=== PATIENT | male | born 1995 | race Caucasian/White ===

== ENCOUNTER 2025-05-19 16:12 | Outpatient (CLI) | payer BC ==
--- NOTE | 2025-05-19 17:23 | RADIOLOGY REPORT ---
EXAM: DI FOOT, COMPLETE (3VW MIN) INDICATION: BUNION; RIGHT FOOT PAIN TECHNIQUE: 3 views of the left foot COMPARISON: None FINDINGS/IMPRESSION: No radiographic evidence of an acute osseous abnormality. There is no acute fracture, osseous malalig nment, or aggressive focal osseous lesion. Mild hallux valgus alignment with minimal overlying soft t issue thickening
--- NOTE | 2025-05-19 17:23 | RADIOLOGY REPORT ---
EXAM: DI ANKLE, COMPLETE(3VW MIN) INDICATION: BUNION; RIGHT FOOT PAIN TECHNIQUE: 3 views of the right foot and ankle COMPARISON: None FINDINGS/IMPRESSION: No radiographic evidence of an acute osseous abnormality. There is no acute fracture, osseous malalig nment, or aggressive focal osseous lesion. No osseous lucency of the talar dome. No tibiotalar joint effusion anatomic alignment. No significant joint space loss. Trace possible soft tissue thickening compatible with possible bunion of the 1st metatarsophalangeal joint
--- NOTE | 2025-05-23 09:05 | RADIOLOGY REPORT ---
EXAM: DI FOOT, COMPLETE (3VW MIN) CLINICAL INDICATION: BUNION; RIGHT FOOT PAIN TECHNIQUE: DI FOOT, COMPLETE (3VW MIN) Comparison: DI ANKLE, COMPLETE(3VW MIN) on DOS: 05/19/25, DI FOOT, COMPLETE (3VW MIN) on DOS: 05/19/25 FINDINGS/IMPRESSION: There is no evidence of acute fracture or dislocation. The visualized joint space is well maintained. The alignment is anatomical. There is no radiopaque foreign body.
== END 2025-05-19 23:59 | disposition home or self-care (01) ==
LOC: RAD 16:12
PROVIDERS: ATTEND Nurse Practitioner Family
DX: M20.12 Hallux valgus (acquired), left foot (principal); M79.671 Pain in right foot; M21.619 Bunion of unspecified foot
CPT/HCPCS: 73610; 73630